=== PATIENT | female | born 1945 | race Caucasian/White ===

== ENCOUNTER 2019-07-06 09:34 | Outpatient (CLI) | payer MEDICARE, OTHER ==
[2019-07-06] VITALS (21 sets, daily range): BP systolic 96–133; BP diastolic 47–75
== END 2019-07-06 23:59 | disposition home or self-care (01) ==
LOC: CARD DIAG 09:34
PROVIDERS: ATTEND Internal Medicine Cardiovascular Disease
DX: R42 Dizziness and giddiness (principal); R55 Syncope and collapse
CPT/HCPCS: 93660

== ENCOUNTER → 2025-07-26 | Day surgery (SDC) | payer MEDICARE, OTHER ==
[2025-07-26] VITALS (10 sets, daily range): BP systolic 112–168; BP diastolic 61–76; PULSE 70–74; RESP 10–16; O2SAT 93–100
[~2025-07-26] VITALS: Ht 162.6 cm; Wt 56.1 kg
[~2025-07-26] MED LIST: ATOR10TA87 PO; BUPIVAcaine/PF 7.5mg/ml (0.75%) 10ml vial ONE; CHOL10003 PO; ESCI-8 PO; HYDROmorphone/PF 0.2 MG/ML SYRINGE IV PRN; LIDOcaine 1%/PF 5ML 10 MG/ML VIAL ONE; LOSA-415 PO; ROPIVAcaine 0.5% (5mg/ml) 30ml vial ONE; bacitracin 15gm ointment TP ONE; dexamethasone sod phosphate 4mg/ml inj. ONE; enalaprilat 1.25mg/ml 2ml vial IV PRN; fentaNYL/PF 50MCG/1 ML 2ML syringe IV PRN; fentaNYL/PF 50MCG/1 ML 2ML syringe ONE; labetalol 20mg/4ml (5mg/ml) syringe IV PRN; midazolam 1 mg/ML 2ml injection ONE; morphine 4 MG/ML inj SYRINge IV PRN; ondansetron/PF 4mg/2ml inj IV PRN; ondansetron/PF 4mg/2ml inj ONE; propofol inj 20 ML IV ONE; ringers solution, lacted 1,000 ML IV SCH
[2025-07-26] MEDS: ceFAZolin 2gm/dext,iso 50mL 50 ML IV ONE (05:30)
[2025-07-26] MEDS: ringers solution, lacted 1,000 ML IV SCH (16:33)
[2025-07-26 19:16] LABS: LEUKOCYTE ESTERASE ,URINE SMALL (Neg); NITRITES, URINE NEGATIVE (Neg); OCCULT BLOOD,URINE NEGATIVE (Neg)
[2025-07-26 19:21] LABS: UA COLLECTION TYPE NON-SPECIFIED
[2025-07-26 19:43] LABS: MUCUS STRANDS NONE SEEN /LPF (Neg); SQUAMOUS EPITHELIAL CELL,UR FEW /LPF (FEW)
--- NOTE | 2025-07-26 20:27 | ANESTHESIA RECORDS ---
Nerve Block Providers to CC ~ Diagnosis: Nerve Block requested by: SHAGGY HAMPTON DPDimitri Neuraxial/Peripheral Nerve Block requested for Post-operative analgesia by Physician above DIAGNOSIS: Post-operative pain. (Body Area) Shoulder: [ ] Arm: [ ] Hand: [ ] Hip: [ ] Knee: [ ] Ankle: [ ] Foot: [ ] Leg: [ ] Abdomen: [ ] Other: [ ] Post-operative pain expected to be/is inadequately managed by oral or IV medicines. Regional anesthetic expected to facilitate rehabilitation and/or discharge from facility. Other:[ ] Procedure Performed: Femoral / Saphenous: Right Popliteal Posterior: Right Time out Done?: Yes Time of Time out: 19:32 Procedure Details: PROCEDURE DETAILS: Risks, benefits and alternatives explained Informed consent obtained, and patient wishes to proceed Conscious sedation with indicated monitors Patient positioned, pertinent anatomy defined, sterile technique used Needle used: [ ] 3 1/8 inch Stimuplex Ultra 22ga [x ] 4 inch Stimuplex Ultra 20ga [ ] 6 inch Stimuplex Ultra 20ga [ ] 6 inch, Quikbloc over the needle catheter set 20ga [ ] 4 inch Quikbloc over the needle catheter set 20ga [ ]Other: [ ] Loss of twitch @ [__0.5 ]mA [x ] Single Injection [ ] Catheter Ultrasound Guidance Used: [x ] Yes [ ] No Attempts:[ once ] Medicines injected: [ ]Clonidine Amt:[ ] [x ]Dexamethasone Amt:[____4 mgs ] [ x ]Ropivacaine Amt:[____0.5% 30 cc ] [ x ]Bupivacaine Amt:[ 0.35% 16 cc ] [ ]Lidocaine Amt:[ ] [ ]Exparel 1.33%:[ ] [ ]Epinephrine Amt[ ] [ ]Other: [ ] Intermittent aspiration during local anesthetic administration No symptoms of intraneural or intravenous injection Patient tolerated procedure well Comments Rt Adductor Canal blk Procedure done before surgery under General anesthesia. Pt supine with Rt leg rotated to Rt slightly. Easy visualization of Adductor Canal with ultra sound anterolateral to Femoral artery at the junction of upper and middle third of thigh. Able to see the tip of the needle and injected local anesthetic with the ultrasound. Right Popliteal fossa Block Pt in supine position with RtLeg flexed at 90 Degrees. Posteri approach. Ultrasound probe placed back of thigh 2 inches above the knee joint. Easy visualization of the Sciatic nerve. 1% xylocaine local anesthetic. Easy visualization of Spreading of local anesthetic anterior and posterior to the Sciatic nerve sub paraneurally inside sciatic nerve sheath. Meaningful conversation t throughout. No Pain or discomfort during injection. YAMINI UGALDE MD Jul 26, 2025 20:26
--- NOTE | 2025-07-26 21:18 | RADIOLOGY REPORT ---
FLUOROSCOPY, OPERATING ROOM PROCEDURE REASON FOR EXAM: RIGHT ANKLE, FLUORO 34.6 SEC/ 2.25 MGY FLUOROSCOPY TIME: 34.6 seconds PEAK SKIN DOSE: 2.25 mGy FINDINGS: Fluoroscopy was provided for SHAGGY HAMPTON fluoroscopic spot images are submitted to PACS. IMPRESSION: Intraoperative fluoroscopic assistance. Please refer to the operative report for a description of the findings.
== END | disposition home or self-care (01) ==
LOC: PAS 16:03
PROVIDERS: ATTEND Podiatrist Foot & Ankle Surgery
DX: S82.891A Other fracture of right lower leg, initial encounter for closed fracture (principal); M25.471 Effusion, right ankle; G89.18 Other acute postprocedural pain; I10 Essential (primary) hypertension; E78.5 Hyperlipidemia, unspecified; Z79.899 Other long term (current) drug therapy; X58.XXXA Exposure to other specified factors, initial encounter; Y93.89 Activity, other specified; Y92.89 Other specified places as the place of occurrence of the external cause; Y99.8 Other external cause status
CPT/HCPCS: 27814; 27829; 64445; 64447; 73600; 81001; 82948; A4618; A6223; A6253; A6402; A6449; A7000; C1713; J1100; J2250; J2405; J2704; J2795; J3010; J3490; J7030; J7120; Z7506; Z7508; Z7512; Z7610; 76000